=== PATIENT | female | born 1970 | race American Indian/Alaskan Native ===

== ENCOUNTER 2019-04-07 10:52 | Outpatient (CLI) | payer OTHER ==
--- NOTE | 2019-04-07 13:46 | Mammography Report ---
BILATERAL DIGITAL DIAGNOSTIC MAMMOGRAM with CAD and LEFT BREAST ULTRASOUND: 04/07/19 CLINICAL: Right palpable breast lump. COMPARISON:None. FINDINGS: The breasts are heterogeneously dense, which may obscure small masses and the breasts are sufficiently dense to limit the sensitivity of mammography.An oval right breast mass at 12 to 1 o'clock has indistinct margins and correlates with a palpable marker. No architectural distortion or suspicious calcifications. Additional bilateral partially circumscribed densities.. Ultrasound of the right breast (including all four quadrants and the retroareolar area) was performed. A group of cysts at 1:30 o'clock 3.5 cm from the nipple correlates with the palpable lump. It measures 2.3 x 1.1 cm. The dominant cyst in the group has a fluid debris level and measures 1.4 cm maximum. Numerous smaller cysts throughout the right breast. No solid mass or shadowing. Ultrasound of the right axilla demonstrated benign-appearing lymph nodes. Ultrasound of the left breast (including all four quadrants and the retroareolar area) was performed and demonstrated numerous benign cysts. In addition, an irregular heterogeneous hypoechoic mass at 4 o'clock 3 cm from the nipple measures 9 x 4 x 9 mm and an oval solid heterogeneous hypoechoic mass at 3:30 o'clock 3 cm from the nipple measures 12 x 6 x 14 mm. Ultrasound of the left axilla demonstrated benign appearing lymph nodes. IMPRESSION: 1. A 2.3 cm cluster of benign cysts correlates with a tender palpable mass in the right breast at 1:30 o'clock. Since the dominant cyst, contains a fluid debris level, recommend cyst aspiration. 2. 2 solid left breast masses at 3 o'clock and 3:30 o'clock 3 cm from the nipple. Recommend ultrasound guided needle biopsy of both of these masses. BI-RADS CATEGORY: 4--Suspicious I discussed the findings and recommendations with Dr. Blackwell at the time of the exam. COMMENT: 1. Dense breast tissue, i.e., adenosis, fibrocystic changes, etc., may obscure an underlying neoplasm. 2. Approximately 10% of cancers are not detected with mammography. 3. A negative mammography report should not delay biopsy if a clinically suspicious mass is present. COMMENT: Patient follow-up letters are generated by our [employer] application.
--- NOTE | 2019-04-07 16:00 | Mammography Report ---
LEFT DIGITAL DIAGNOSTIC MAMMOGRAM: 04/07/19 10:52:00 CLINICAL: For clip placement immediately status post 2 site ultrasound-guided needle biopsy. COMPARISON:A same-day mammogram FINDINGS: Biopsy clips are now identified at 3 o'clock and 3:30 o'clock. IMPRESSION: Concordant clip placement status post ultrasound guided needle biopsy at 2 sites. BI-RADS CATEGORY: 4--Suspicious Pathology pending.
--- NOTE | 2019-04-07 16:13 | Ultrasound Report ---
ULTRASOUND GUIDED NEEDLE CORE BIOPSY WITH CLIP PLACEMENT AT 2 SITES LEFT BREAST : 04/07/19 14:30:00 CLINICAL: Left breast masses at 3 o'clock and 3:30 o'clock. COMPARISON :A same-day ultrasound. FINDINGS: The procedure was explained to the patient and informed consent was obtained . Ultrasound demonstrated irregular solid hypoechoic mass at 3 o'clock 3 cm from the nipple. On the current images is labeled at 4 o'clock. The mobile solid lesion at 3:30 o'clock 3 cm from nipple was also demonstrated. The skin was prepped with Betadine and anesthetized with 1% lidocaine. Ultrasound needle core biopsy of the irregular lesion at 3 to 4 o'clock was performed through a small dermatotomy using ultrasound guidance, 2% lidocaine with epinephrine for deep anesthesia and a 14-gauge coaxial Achieve biopsy device. Imaging demonstrated satisfactory sampling. 4 cores were obtained and placed in formalin. A localizer clip was then placed within the lesion. The skin was prepped with Betadine and anesthetized with 1% lidocaine. Ultrasound needle core biopsy of the oval heterogeneous solid mass at 3:30 o'clock was performed through a small dermatotomy using ultrasound guidance, 2% lidocaine with epinephrine for deep anesthesia and a 14-gauge coaxial Achieve biopsy device. 3 cores were obtained and placed in formalin. A localizer clip was deployed within the lesion. Hemostasis was obtained both sites with minimal pressure and sterile dressings were applied. The patient tolerated the procedure well and there were no apparent complications. A two-view mammogram demonstrated concordant clip placement at both sites. She was discharged in good condition and was given instructions for wound care and followup. IMPRESSION: Uncomplicated ultrasound-guided needle core biopsy of 2 left breast masses .
== END 2019-04-07 10:53 | disposition home or self-care (01) ==
LOC: EEVIPCON 10:52 → SPVWC 10:52
PROVIDERS: ATTEND Surgery
DX: D24.2 Benign neoplasm of left breast (principal); N62 Hypertrophy of breast
CPT/HCPCS: 19083; 19084; 76641; 77066; 88305; 88342; A4648

== ENCOUNTER 2019-04-08 14:36 | Outpatient (CLI) | payer OTHER | END 2019-04-08 14:37 | disposition home or self-care (01) | LOC: LABHHL 14:36 | PROVIDERS: ATTEND Surgery | DX: N60.01 Solitary cyst of right breast (principal) | CPT/HCPCS: 88112 ==